=== PATIENT | male | born 1995 | race Caucasian/White ===

== ENCOUNTER 2021-02-06 01:21 | Inpatient (IN) | payer MEDICAID, SELFPAY ==
[~2021-02-06] VITALS: Ht 170.2 cm; Wt 101.8 kg
[2021-02-06] MEDS ORDERED: NICOTINE 21MG/24HR 1 EA TRANSDERMAL TD ONE (02:05)
[2021-02-06 02:31] LABS: HEMATOCRIT 50.2 % (42.0-52.0); MEAN CORPUSCULAR HEMOGLOBIN 32.6 pg (27.0-33.0); MEAN CORPUSCULAR HGB CONC 33.9 g/dl (32.0-36.5); MEAN CORPUSCULAR VOLUME 96.2 fl (80.0-96.0); PLATELET COUNT, AUTOMATED 163 10^3/uL (150-450); RED BLOOD COUNT 5.22 10^6/uL (4.30-6.10); WHITE BLOOD COUNT 8.1 10^3/uL (4.0-10.0)
[2021-02-06 03:03] LABS: ACETAMINOPHEN LEVEL < 2.0 UG/ML (10.0-30.0); ALBUMIN 4.6 GM/DL (3.2-5.2); ALT/SGPT 132 U/L (12-78); AMPHETAMINES LEVEL URINE POSITIVE (NEGATIVE); BARBITURATES URINE NEGATIVE (NEGATIVE); BENZODIAZEPINES URINE NEGATIVE (NEGATIVE); BILIRUBIN,DIRECT 0.1 MG/DL (0.0-0.2); BILIRUBIN,TOTAL 0.3 MG/DL (0.2-1.0); BLOOD UREA NITROGEN 18 MG/DL (7-18); CALCIUM LEVEL 9.1 MG/DL (8.5-10.1); CANNABINOIDS URINE NEGATIVE (NEGATIVE); CARBON DIOXIDE LEVEL 25 MEQ/L (21-32); CHLORIDE LEVEL 107 MEQ/L (98-107); COCAINE METABOLITE URINE NEGATIVE (NEGATIVE); CREATININE FOR GFR 1.11 MG/DL (0.70-1.30); ETHYL ALCOHOL (ETHANOL) 0.147 % (0.000-0.010); GLOMERULAR FILTRATION RATE > 60.0 (>60); GLUCOSE, FASTING 126 MG/DL (70-100); METHADONE URINE NEGATIVE (NEGATIVE); OPIATES URINE NEGATIVE (NEGATIVE); PHENCYCLIDINE URINE NEGATIVE (NEGATIVE); POTASSIUM SERUM 3.5 MEQ/L (3.5-5.1); SALICYLATE LEVEL 3.7 MG/DL (5.0-30.0); SODIUM LEVEL 140 MEQ/L (136-145); TOTAL PROTEIN 8.1 GM/DL (6.4-8.2)
[2021-02-06 07:06] LABS: RSV AMPLIFICATION NEGATIVE (NEGATIVE)
[2021-02-06] MEDS ORDERED: HOME MED LIST COMPLETE! XX SCH (07:20)
[2021-02-06] MEDS ORDERED: MAALOX 30 ML SUSP *UDC PO PRN (08:25)
[2021-02-06] MEDS ORDERED: traZODone 50 MG TAB PO PRN (08:25)
[2021-02-06] MEDS ORDERED: MOM 30ML SUSPENSION UDC PO PRN (08:25)
[2021-02-06] MEDS ORDERED: ACETAMINOPHEN TAB 650MG DOSE (2X325MG) PO PRN (08:25)
[2021-02-06 09:53] VITALS: BP 158/118
[2021-02-06] MEDS ORDERED: LORazepam 1 MG TAB PO ONE ×2 (12:00→13:10)
[2021-02-06] MEDS ORDERED: hydrOXYzine 50 MG TAB PO PRN (13:20)
--- NOTE | 2021-02-06 14:10 | MHHPEPDOC ---
General Date Of Admission: Feb 05, 2021 Legal Status: 9.39 Chief Complaint "I did something stupid. I have had anxiety for a long time and I need help." History of Present Illness HISTORY OF THE PRESENT ILLNESS: Patient is a 25 -year-old single, employed, domiciled, , male, who reports drinking prior to admission and having suicidal gestures to hang himself. He reports that he called his cousin to tell her that he had suicidal thoughts. States that he had been drinking more than he normally drinks in 1 sitting. His blood alcohol was 0.147. He states that he recently has had several new stressors that have triggered his anxiety: 1. 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 2. Living with his girlfriend and her child, and they will be moving in 2 months. 3. Generalized anxiety reporting anxiety since he was a child. In his interview today he currently denies suicidal ideation has severe anxiety due to being hospitalized. He was very tearful in the interview required Ativan 1 mg PER ED REPORT: Pt is calm, guarded, clinically sober, A&Ox3, admits to speaking with his cousin earlier tonight and expressing SI. Pt reports feeling depressed "for years, since I was 15", but has never sought tx, no prior admissions or attempts at self-harm. Pt is guarded with mumbled speech, poor eye contact, answers many questions with a nod or shake of the head, denies any specific stressors, denies HI/AH/VH. Pt admits to frequent ETOH use recently, denies any drug use, and denies any family psych Hx. PT admits to having plan to hang self-earlier tonight when Police found him [place], remains fairly guarded and does not discuss any stressors. Pt cannot CFS, insight/judgment impaired, cannot CFS and appears unsafe for d/c. Pt reportedly sent message to cousin expressing SI, Police responded to residence to find pt. in the [place] the residence. Per Doug, pt. had an electrical cord wrapped around the branch of a tree (not a noose) that pt. was sitting under when they arrived, pt. has been drinking tonight as well. Psychiatric Review of Systems Depression (2 or more weeks): suicidal thoughts Elizabeth (4 or more days of): irritable/elevated mood, flight of ideas, distractibility, goal-directed activities, other (racing thoughts) Psychosis: visual hallucination (seeing someone at work, a flash by and seeing outside of work), paranoia (" I am always a little paranoid"), denies PTSD: history of trauma Anxiety: gen/non-specific anxiety, situational anxiety, stressor related anxiety, panic attacks Anxiety/ 6 months or more of: restlessness, keyed up, easily fatigued, diffi culty concentrating, irritability Past Psychiatric History Previous Psychiatric Diagnosis: Denies Previous Psychiatric Admissions: This is his first Suicide Attempts: This is his first, had thoughts to hang himself, and was found with an electrical cord in the [facility] Psychiatric Follow-up: None Psychiatric medications: None. Past Medical History Medical Problems Hypertension Head Injury: No Seizures: No Hospitalizations: No Surgeries: No Family Medical/Psychiatric HX Medical Problems Biological father history of drug abuse Psychiatric Disorders: Yes (Half sister diagnosed with bipolar) Addiction: Yes Suicide Attemps/Completions: No Addiction History nicotine, alcohol Social History Childhood: Patient was adopted at the age of 5. States that his biological father has a history of drug and alcohol abuse, he has a half sister diagnosed with bipolar, Abuse/Trauma: Childhood trauma by parents who are both substance abusers Current Living Situation: Currently living with his girlfriend and her child x1.5-month. Education: High school diploma Employment: [employer] x2 months and a [employer] Social Support: His girlfriend Legal: Denies Marital: Single no children never . Mental Status Examination General Appearance: unkempt, appears stated age, hospital scubs/clothing Build: overweight Demeanor: withdrawn, guarded Eye Contact: average Activity: anxious Behavior: cooperative Speech: clear, normal volume, reg/rate,rhythm,volume Mood: anxious Affect: constricted, other Thought Content (Delusions): none reported Thought Content (Aggressive): none reported Perception (Hallucinations): visual Cognition (Impairment of): none reported Cognition(Intelligence Est.): average Oriented: Awake, Alert, Oriented times three Insight: fair Judgment: Fair Psychosis: Psychotic Perceptions (Visual hallucination of a man) Diagnoses Adjustment disorder with mixed disturbances of emotions and conduct Generalized anxiety disorder Alcohol use disorder Alcohol intoxication nicotine use disorder Rule out alcohol induced mood disorder A-FIB/CHADSVASC A-FIB History Current/History of A-Fib/PAF?: No Current PO Anticoag Therapy: No Assessment Patient is a 25 -year-old single, employed, domiciled, , male, who reports drinking prior to admission and having suicidal gestures to hang himself. He reports that he called his cousin to tell her that he had suicidal thoughts. States that he had been drinking more than he normally drinks in 1 sitting. His blood alcohol was 0.147. He states that he recently has had several new stressors that have triggered his anxiety: 1. 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 2. Living with his girlfriend and her child, and they will be moving in 2 months. 3. Generalized anxiety reporting anxiety since he was a child. In his interview today he currently denies suicidal ideation has severe anxiety due to being hospitalized. He was very tearful in the interview required Ativan 1 mg Patient states that he has had anxiety since a child due to his parents interpersonal conflict with each other and their excessive drinking. He states that he himself was drinking more than usual last night and in the interview he could not be away from his girlfriend another night because she is his "lifeline." He was quite tearful in the interview and requesting to be discharged. He denies current suicidal thinking and feels that he should be able to go home. States. "Had I known that signing that paper would land me in here, I would have never signed it. I didn't realize that I would be put in here." Patient has future orientation, vehemently denies suicidal ideation, planning and intent. We will likely discharge tomorrow. Initial Treatment Plan 1. Patient was admitted on a [9.39] status. 2. Complete history was obtained. 3. With patients permission, family will be contacted and database will be expanded. 4. Patients medication regimen will be reviewed and changed accordingly. 5. Patient will be provided with protected environment. 6. Patient will be treated with individual, group, and milieu therapies. 7. Patient will receive supportive psych-education. 8. Discharge planning will commence immediately. 9. Outpatient follow-up treatment will be strongly recommended. 10. The initial treatment plan will focus initially on: * Depression. * Risk for suicide. ESTIMATED LENGTH OF STAY: 13 DAYS. TIME SPENT COUNSELING AND COORDINATING INITIAL CARE: 60 minutes. Tobacco Cessation Screen Tobacco Cessation Tx Ordered?: Yes N/A-No Antipsychotics Vital Signs Vital Signs Date Time Temp Pulse Resp B/P (MAP) Pulse Ox O2 Delivery O2 Flow Rate FiO2 02/06/21 09:53 97 18 158/118 (131) 98 Room Air 02/06/21 09:24 97.9 Laboratory Data 24H Labs Laboratory Tests 2 02/06/21 02:17: Nucleated Red Blood Cells % (auto) 0.0, Anion Gap 8, Glomerular Filtration Rate > 60.0, Calcium Level 9.1, Total Bilirubin 0.3, Direct Bilirubin 0.1, Aspartate Amino Transf (AST/SGOT) 63H, Alanine Aminotransferase (ALT/SGPT) 132H, Alkaline Phosphatase 53, Total Protein 8.1, Albumin 4.6, Albumin/Globulin Ratio 1.3, Thyroid Stimulating Hormone (TSH) 6.630H, Salicylates Level 3.7L, Urine Opiates Screen NEGATIVE, Urine Methadone Screen NEGATIVE, Acetaminophen Level < 2.0L, Urine Barbiturates Screen NEGATIVE, Urine Phencyclidine Screen NEGATIVE, Urine Amphetamines Screen POSITIVEH, Urine Benzodiazepines Screen NEGATIVE, Urine Cocaine Metabolite Screen NEGATIVE, Urine Cannabinoids Screen NEGATIVE, Ethyl Alcohol Level 0.147H 02/06/21 06:15: Coronavirus (COVID-19)(PCR) NEGATIVE, Influenza Type A (RT-PCR) NEGATIVE, Influenza Type B (RT-PCR) NEGATIVE, Respiratory Syncytial Virus (PCR) NEGATIVE CBC/BMP Laboratory Tests 02/06/21 02:17 Medications No Active Prescriptions or Reported Meds Allergies Coded Allergies: No Known Drug Allergies (Verified Allergy, Unknown, 02/06/21) PURVI [place] NP Feb 06, 2021 13:16
[2021-02-06 16:15] VITALS: BP 153/90
[2021-02-07 06:46] VITALS: BP 137/88
[2021-02-07] MEDS ORDERED: ZOLO50TA PO (09:11)
[2021-02-07] MEDS ORDERED: HYDR50TA70 PO (09:11)
[2021-02-07] MEDS ORDERED: HYDR12.55 PO (13:12)
[2021-02-07] MEDS ORDERED: hydroCHLOROthiazide 12.5 MG CAPSULE PO ONE (13:15)
--- NOTE | 2021-02-07 13:19 | HPEPDOC ---
[facility] Medical History & Physical Date of Admission Feb 07, 2021 Date of Service: Feb 07, 2021 History and Physical CHIEF COMPLAINT: depression/SI HISTORY OF PRESENT ILLNESS: 25-year-old male the past medical history of hypertension was admitted to [facility] for suicidal ideation and depression. Patient has been cleared from psychiatry standpoint to be discharged today. I was called to assess patient by [facility] for blood pressure issues. Patient states that he was previously on lisinopril but has lost significant amount of weight and was discontinued. The highest recorded blood pressure in the EMR is 159/89. Patient asymptomatic. I discussed the option of starting patient on h ydrochlorothiazide which he agreed with. Lifestyle modification counseling was also provided. Patient smokes 1 pack of cigarettes per day. He has stopped drinking alcohol. Patient at this time denies chest pain palpitations shortness of breath headache nausea vomiting diarrhea or suicidal ideation. PAST MEDICAL HISTORY: Hypertension Depression, anxiety PAST SURGICAL HISTORY: Denies prior surgical history SOCIAL HISTORY: Patient reports smoking 1 pack/day. Has quit drinking. Denies any illicit drug use. FAMILY HISTORY: History of heart disease on both sides of the family, patient is unable to specify more detail. ALLERGIES: Please see below. REVIEW OF SYSTEMS: 10 point ROS conducted, relevant findings are noted in the HPI. HOME MEDICATIONS: Please see below. PHYSICAL EXAMINATION: VITAL SIGNS: please see below General: NAD, comfortable HEENT: PERRLA, EOMI, sclerae clear Neck: supple, normal ROM, no JVD Respiratory: lungs CTAB, no wheeze, no rales, no crackles CVS: RRR, normal S1, S2, no murmurs Abdo: soft, no masses, no hepatosplenomegaly, BS+, no rebound tenderness Extremities: no edema, pulses 2+ MSK: no joint deformities, normal ROM Neuro: no focal neuro deficits, moving all 4 extremities, CN2-12 intact. Strength 5/5 in all 4 extremities. No nystagmus. Psych: calm, cooperative, AAO x 3 LABORATORY DATA: See below. MICROBIOLOGY: Please see below. ASSESSMENT: 25-year-old male the past medical history of hypertension was admitted to [facility] for suicidal ideation and depression. Patient has been cleared from psychiatry standpoint to be discharged today. I was called to assess patient by [facility] for blood pressure issues. Patient states that he was previously on lisinopril but has lost significant amount of weight and was discontinued. The highest recorded blood pressure in the EMR is 159/89. Patient asymptomatic. I discussed the option of starting patient on hydr ochlorothiazide which he agreed with. Lifestyle modification counseling was also provided. Patient smokes 1 pack of cigarettes per day. He has stopped drinking alcohol. Patient at this time denies chest pain palpitations shortness of breath headache nausea vomiting diarrhea or suicidal ideation. . PLAN: Suicidal ideation, depression, anxiety: Per psychiatry. Hypertension: BP noted systolic 159. Patient was previously taking lisinopril but has lost a significan amount of weight and the medication was discontinued. Will start patient on hydrochlorothiazide 12.5 mg daily. Counseled patient to stop smoking. To continue exercise. Patient will follow up with his PCP in 3 to 5 days for BP check. Elevated TSH: Free T4 levels are within normal limits 0.83. Advised patient to repeat thyroid function test in 4 to 6 weeks with his PCP. Elevated AST ALT: likely elevated in setting of etoh intoxication. Dispo: Per psychiatry Thank you for involving me in the care of this patient. Please reconsult as necessary. Vital Signs Vital Signs Date Time Temp Pulse Resp B/P (MAP) Pulse Ox O2 Delivery O2 Flow Rate FiO2 02/07/21 08:45 Room Air 02/07/21 06:46 97.4 64 20 137/88 (104) 99 Laboratory Data Labs 24H Laboratory Tests 2 02/07/21 11:42: Free Thyroxine 0.83 Home Medications Scheduled Hydrochlorothiazide (Hydrochlorothiazide) 12.5 Mg Tablet, 1 TAB PO DAILY for htn Sertraline Hcl (Zoloft) 50 Mg Tablet, 50 MG PO DAILY for Depression Scheduled PRN Hydroxyzine HCl (Hydroxyzine HCl) 50 Mg Tablet, 50 MG PO BIDP PRN for ANXIETY/AGITATION Allergies Coded Allergies: No Known Drug Allergies (Verified Allergy, Unknown, 02/06/21) LIAM LAFLEUR MD Feb 07, 2021 13:19
--- NOTE | 2021-02-07 14:15 | MHDSPDOC ---
[facility] Discharge Summary Discharge Summary DATE OF ADMISSION: Feb 06, 2021 at 08:22 DATE OF DISCHARGE: Feb 07, 2021 at 13:25 DISCHARGE DIAGNOSES: Adjustment disorder with mixed disturbances of emotions and conduct Generalized anxiety disorder Alcohol use disorder Alcohol intoxication nicotine use disorder Rule out alcohol induced mood disorder REASON FOR ADMISSION: Patient is a 25 -year-old single, employed, domiciled, , male, who reports drinking prior to admission and having suicidal gestures to hang himself. He reports that he called his cousin to tell her that he had suicidal thoughts. States that he had been drinking more than he normally drinks in 1 sitting. His blood alcohol was 0.147. He states that he recently has had several new stressors that have triggered his anxiety: 1. 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 2. Living with his girlfriend and her child, and they will be moving in 2 months. 3. Generalized anxiety reporting anxiety since he was a child. In his interview today he currently denies suicidal ideation has severe anxiety due to being hospitalized. He was very tearful in the interview required Ativan 1 mg PER ED REPORT: Pt is calm, guarded, clinically sober, A&Ox3, admits to speaking with his cousin earlier aurea and expressing SI. Pt reports feeling depressed "for years, since I was 15", but has never sought tx, no prior admissions or attempts at self-harm. Pt is guarded with mumbled speech, poor eye contact, answers many questions with a nod or shake of the head, denies any specific stressors, denies HI/AH/VH. Pt admits to frequent ETOH use recently, denies any drug use, and denies any family psych Hx. PT admits to having plan to hang self-earlier tonight when Police found him [place], remains fairly guarded and does not discuss any stressors. Pt cannot CFS, insight/judgment impaired, cannot CFS and appears unsafe for d/c. Pt reportedly sent message to cousin expressing SI, Police responded to residence to find pt. in the [place] the residence. Per Doug, pt. had an electrical cord wrapped around the branch of a tree (not a noose) that pt. was sitting under when they arrived, pt. has been drinking tonight as well. VITAL SIGNS: See below. CONSULTANTS INVOLVED: See Medical H + P by Hospitalist TREATMENT AND PROGRESS ON THE UNIT: Patient was admitted to the [facility] on a 9.39 legal status he was afforded the following treatment modalities: 1) Individual Therapy 2) Group Therapy 3) Medication Management 4) Milieu Therapy 5) Safe Environment HOSPITAL COURSE: Patient was admitted to [facility] on a 9.39 legal status. On initial interview, patient was reporting high anxiety due to his current work and generalized anxiety, he states that everything makes him anxious and nervous. The night before his admission he was drinking excessively and had a suicidal thought and gesture. In his psychiatric assessment, he denied thoughts of self harm and was very tearful about being admitted. He was not willing to take an anti-depressant but was willing to start Zoloft. Mood and anxiety improved overnight. On day of discharge he denied depression, anxiety, insomnia, SI/HI, hallucinations, delusions. Pt was discharged home with follow- up with [facility]. Pt felt safe for discharge. Patient was seen by Hospitalist for elevated blood pressure, he was started on Hydrochlorothiazide 12.5 mg. See H + P by hospitalist. DISCHARGE ASSESSMENT: In today's interview, patient is alert and oriented, pts dress is appropriate. Hygiene and grooming is well-kempt. Smiles on approach and is pleasant and engaged in the interview. Denies depression and anxiety. Denies suicidal and homicidal ideation, planning or intent. Denies and is not observed with alise, psychotic symptoms of delusions, bizarre thinking, obsessions, paranoia, ruminations illogical thoughts, flight of ideas or having poor insight and judgement. Patient has normal mentation, declines further hospitalization on a voluntary status and meets criteria for discharge today. Patient encouraged to return to hospital if symptoms worsen or change and encouraged to call unit if he/she/they needs to speak to provider for questions regarding medications or care. MENTAL STATUS EXAMINATION ON DISCHARGE: Patient is a 25 -year-old single, employed, domiciled, , male, who reports drinking prior to admission and having suicidal gestures to hang himself. He reports that he called his cousin to tell her that he had suicidal thoughts. Speech: Is fluid, conversant, normal rate, tone and volume Language skills are intact Thought processes including: linear and goal oriented Thought content: denies depression and anxiety. Denies suicidal/homicidal ideat ion, planning or intent. Abstract reasoning, and computation: fair Description of associations: denies, none observed Description of abnormal or psychotic thoughts: denies, none observed. Judgment: fair Insight: fair Orientation: alert and oriented to person, place, time and situation Recent and remote memory: intact Attention span and concentration: good Language: expansive Fund of knowledge: average Mood: Euthymic Mood Affect: reactive Suicide Risk Assessment: Historical risk enhancing factors 1. Male gender 2. Single but living with girlfriend and child 3. History of trauma in childhood Clinical risk enhancing factors 1. Mild depression 2. Alcohol use 3. History of anxiety Acute risk enhancing factors 1. Severe anxiety 2 alcohol use within the past 24 to 48 hours Risk reducing factors 1. Future oriented thinking 2. Social supports and has a romantic partner -he is living with her 3. Responsible for child under 18 4. Absence of suicidal ideations, intent or plan 5. Hopeful 6. Willingness to accept help in treatment 7. Stable and improved mood symptoms 8. Low severity of current psychiatric symptoms 9. Employed Patient's suicide risk scores are low upon discharge in the most predictable factor is the absence of suicidal planning, intention, and he has no ready access such as a weapon. MEDICATIONS ON DISCHARGE: See Medication Reconciliation PLAN/FOLLOWUP ARRANGEMENTS: [facility] for outpatient mental health. The amount of time spent in the coordination of care for this patient was approximately 25 minutes. ETOH/Disorder Med Rx ETOH/DRUG DISORDER RX: Offrd @ d/c & pt refused Vital Signs/I&Os Vital Signs Date Time Temp Pulse Resp B/P (MAP) Pulse Ox O2 Delivery O2 Flow Rate FiO2 02/07/21 08:45 Room Air 02/07/21 06:46 97.4 64 20 137/88 (104) 99 Laboratory Data Labs 24H Laboratory Tests 2 02/07/21 11:42: Free Thyroxine 0.83 Medications Scheduled Hydrochlorothiazide (Hydrochlorothiazide) 12.5 Mg Tablet, 1 TAB PO DAILY for htn for 30 Days, #30 Sertraline Hcl (Zoloft) 50 Mg Tablet, 50 MG PO DAILY for Depression for 7 Days, #7 Scheduled PRN Hydroxyzine HCl (Hydroxyzine HCl) 50 Mg Tablet, 50 MG PO BIDP PRN for ANXIETY/AGITATION, #14 Allergies Coded Allergies: No Known Drug Allergies (Verified Allergy, Unknown, 02/06/21) PURVI [place] CUSTOMER SERVICE ATTENDANT Feb 07, 2021 14:15
== END 2021-02-07 13:25 | disposition home or self-care (01) | DRG 755 ==
LOC: M ED 01:21 → M ED INP 08:22 → M PSY 09:43
PROVIDERS: ADMIT Student in an Organized Health Care Education/Training Program; ATTEND Psychiatry & Neurology Psychiatry
DX: F43.25 Adjustment disorder with mixed disturbance of emotions and conduct (principal); I10 Essential (primary) hypertension; R45.851 Suicidal ideations; F41.1 Generalized anxiety disorder; F10.129 Alcohol abuse with intoxication, unspecified; F17.210 Nicotine dependence, cigarettes, uncomplicated; F10.14 Alcohol abuse with alcohol-induced mood disorder; Z81.3 Family history of other psychoactive substance abuse and dependence; Z81.8 Family history of other mental and behavioral disorders; Z79.899 Other long term (current) drug therapy; Z20.822 Contact with and (suspected) exposure to COVID-19